=== PATIENT | female | born 1960 | race African-American/Black ===

== ENCOUNTER 2019-08-20 13:28 | Inpatient (IN) | payer OTHER ==
[~2019-08-20] VITALS: Ht 162.6 cm; Wt 71.7 kg
--- NOTE | ~2019-08-20 | EMS ---
[address] [address] EMS Patient Care Report Name: JENNIFFER COCHRAN Room #: PRE ER M.R.#: [id number] Admission: Attend Phys: Discharge: Date of : 62 Report #: [id number] THIS REPORT FOR: //name// Report Transmitted: 08/20/2019 13:12 EMS Care Summary [place], [place]/[facility] Incident [id number] @ 08/20/2019 12:51 Incident Location [address] [place], [place] [id number] Patient JENNIFFER COCHRAN Female, 58 Years 1960 Patient Address [address] [place] [id number] Patient History Hypertension (HTN), Chief Complaint SEIZURE, POSTICAL Disposition Transported No Lights/Ironside Dispatch Reason Stroke/CVA Transported To [facility] Narrative UPON ARRIVAL PT LATERAL ON THE GROUND NOT ALERT. 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 RESTORATIONISM SAW PT START LOOKING UP AND FALL TO THE SIDE OUT OF THE CHAIR, PT DID HAVE SOME ASSISTANCE TO THE GROUND. PT HAD SEIZURE LIKE ACTIVITY FOR ABOUT A MINUTE. PT HAS NO KNOWN SEIZURE HX. PT CARRIED TO COT. UPON REACHING AMBULANCE PT BECOMES UNCOOPERATIVE/ COMBATIVE AND STILL CONFUSED. PT TRANPORTED TO [facility]. MENTAL STATUS IMPROVES UPON ARRIVAL TO ER AND PT IS ABLE TO ANSWER A FEW QUESTIONS. PT BEGIN C/O PAIN TO THE R SHOULDER. [address] [address] EMS Patient Care Report Name: JENNIFFER COCHRAN Room #: PRE M.R.#: [id number] Admission: Attend Phys: Discharge: Date of : 62 Report #: [id number] Initial Vitals @13:13P: 142,BP: 179/108, @13:11P: 133, @13:15GCS: 12, @13:09P: 137,CO: 3,SpO2: 95, @13:16P: 136,CO: 5,SpO2: 94, @13:00P: 100,R: 24,BP: 114/72,Pain: 0/10,GCS: 9,Glucose: 194,SpO2: 94,Revised Trauma: 11, Assessments @13:00MENTAL:Combative,Confused,SKIN:HEENT:Head/Face: No Abnormalities,LUNG SOUNDS:General: No Abnormalities,ABDOMEN:General: No Abnormalities,PELVIS//GI:EXTREMITIES:Left Arm: No Abnormalities,Right Arm: No Abnormalities,Left Leg: No Abnormalities,Right Leg: No Abnormalities,PULSE:Radial: 2+ Normal,NEURO:Seizures, Impression Seizures without status epilepticus Procedures @13:00ALS AssessmentResponse: UnchangedSucceeded@13:05Saline Lock 20cc (18 ga) Site: Antecubital-LeftResponse: UnchangedSucceeded@13:063-Lead ECGResponse: UnchangedSucceeded Timeline 12:49,Call Received 12:49,Dispatch Notified 12:51,Dispatched 12:52,En Route 12:55,On Scene 12:57,At Patient 13:00,ALS Assessment,Response: UnchangedSucceeded, 13:00,BP: 114/72 M,PULSE: 100,RR: 24 R,SPO2: 94 Ox,ETCO2: ,B,PAIN: 0,GCS: 9, 13:05,Saline Lock 20cc 18 ga Site: Antecubital-Left,Response: UnchangedSucceeded, 13:06,3-Lead ECG,Response: UnchangedSucceeded, 13:09,BP: / M,PULSE: 137,RR: R,SPO2: 95 Ox,ETCO2: ,BG: ,PAIN: ,GCS: , 13:10,Depart Scene 13:11,BP: / M,PULSE: 133,RR: R,SPO2: Ox,ETCO2: ,BG: ,PAIN: ,GCS: , 13:13,BP: 179/108 M,PULSE: 142,RR: R,SPO2: Ox,ETCO2: ,BG: ,PAIN: ,GCS: , 13:15,BP: / M,PULSE: ,RR: R,SPO2: Ox,ETCO2: ,BG: ,PAIN: ,GCS: 12, 13:16,BP: / M,PULSE: 136,RR: R,SPO2: 94 Ox,ETCO2: ,BG: ,PAIN: ,GCS: , 13:24,At Destination 13:32,Call Closed [facility] [address] [facility] [place] [address] EMS Patient Care Report Name: COCHRANSIMONI Room #: [facility] MLuiRLui#: [id number] Admission: Attend Phys: Discharge: Date of : 62 Report #: [id number] Disclaimer v1.1 Copyright 2020 [employer] This EMS Care Summary contains data elements from the applicable legal record (which may be displayed differently). It is designed to provide pertinent information for the following purposes: continuity of care, clinical quality, and state data reporting. The complete legal record is available to ED staff and administrators of the receiving hospital in [employer]'s Patient Tracker. All data is provided "as is."
--- NOTE | ~2019-08-20 | EEG ---
[facility] [place] [address] ELECTROENCEPHALOGRAM Name: JENNIFFER COCHRAN Room #: 206-P [facility] IN M.R.#: [id number] Admission: 08/20/19 Attend Phys: El Ricketts MD Discharge: Date of : 62 Report #: [id number] THIS REPORT FOR: //name// [facility] DATE OF SERVICE: 08/21/2019 This patient is being evaluated for seizure. EEG was done by placing the electrode by standard 10-20 system of electrode placement. Both referential and sequential montages were used for recording. Background activity in this patient's EEG is about 10 Hz and 30 microvolt. This patient's EEG appeared to have a lot of eye movement artifact. Because of that, eye monitors were put in and that does appear to correlate with what looks like they were artifact. The patient became drowsy and that is also associated with bilateral slowing and vertex sharp waves. No spike and slow wave activity was noticed during this examination. IMPRESSION: This patient's EEG does not demonstrate any spike and slow wave activity, which is a definite sign for seizure. It would appear that the patient's EEG demonstrates paroxysmal delta range slowing, but eye monitors were put in and it looks like those were eye movements rather than epileptiform activity. However, clinical correlation is recommended. It also might be mentioned that EEG can be normal in a patient with seizure disorder in a significant percentage of patient and therefore either clinical decision need to be made in this patient's regarding anticonvulsants or alternate testing like prolonged monitoring needs to be done. Thank you very much for this referral. By: 1424 1443 Rah Landeros MD /nt
[2019-08-20 13:30] VITALS: BP 148/91
[2019-08-20 14:09] LABS: CALCIUM 8.5 mg/dL (8.5-10.1); CREATININE 0.9 mg/dL (0.6-1.0); POTASSIUM 3.3 mmol/L (3.5-5.1)
[2019-08-20 14:16] LABS: ALBUMIN 3.6 g/dL (3.4-5.0); TOTAL BILIRUBIN 1.1 mg/dL (<0.1-1.0); TOTAL PROTEIN 7.1 g/dL (6.4-8.2)
[2019-08-20 14:17] LABS: ABSOLUTE NEUTROPHILS 4.5 thou/uL (1.4-8.2); BASOPHILS 0.5 % (0.0-2.0); EOSINOPHILS 0.1 % (0.0-3.0); HEMATOCRIT 35.6 % (37.0-47.0); LYMPHOCYTES 22.8 % (24.0-44.0); MCH 30.8 pg (26.0-34.0); MCHC 33.6 g/dL (28.0-37.0); MCV 91.8 fL (80.0-100.0); POLYS 73.6 % (36.0-66.0); RBC 3.88 mil/uL (4.20-5.00); RDW 12.9 % (10.5-14.5); WBC 6.1 thou/uL (4.0-11.0)
[2019-08-20 14:51] LABS: PLATELET COUNT 294 thou/uL (150-400)
[2019-08-20 16:25] VITALS: BP 162/109
[2019-08-20 16:35] VITALS: BP 162/109
[2019-08-20 17:06] VITALS: BP 153/86
[2019-08-20 17:06] LABS: AMP/METHAMP Negative (Negative); BARBITURATES Negative (Negative); BENZODIAZEPINES Negative (Negative); COCAINE Negative (Negative); METHADONE Negative (Negative); OPIATES POSITIVE (Negative); PCP Negative (Negative)
[2019-08-20 17:52] VITALS: BP 167/91
--- NOTE | 2019-08-20 18:39 | NUR ---
ASSUMMED PT CARE AT APPROXIMATELY 1555. PT A&O X4 AND DROWSY. ASSESSMENT CHARTED. FALL PRECAUTIONS IN PLACE. PT DENIES HAVING CHEST PAIN. PT DENIES HAVING SOB. PT STATED HE R ARM HAD PAIN. PT RECEIVED ANALGEISCS. IN ED PRIOR TO TRANSFERING. PT STATED HER PAIN HAD RELELIEVED. PT COMFORTABLE ADMISSION COMPLETE. VITAL SIGNS STABLE. PT DENIES HAVING FURTHER CONCERNS.
[2019-08-20 20:47] VITALS: BP 150/119
[2019-08-21 00:45] VITALS: BP 154/77
[2019-08-21 05:26] VITALS: BP 156/79
[2019-08-21 05:59] LABS: HEMATOCRIT 31.4 % (37.0-47.0); HEMOGLOBIN 10.7 gm/dL (12.0-15.0); MCHC 34.3 g/dL (28.0-37.0); MCV 90.5 fL (80.0-100.0); RBC 3.47 mil/uL (4.20-5.00); RDW 12.5 % (10.5-14.5); WBC 9.6 thou/uL (4.0-11.0)
[2019-08-21 06:22] LABS: CALCIUM 8.6 mg/dL (8.5-10.1); CREATININE 0.7 mg/dL (0.6-1.0); POTASSIUM 3.5 mmol/L (3.5-5.1)
--- NOTE | 2019-08-21 08:37 | EKG ---
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
[2019-08-21 09:00] VITALS: BP 153/94
[2019-08-21 12:40] VITALS: BP 130/72
--- NOTE | 2019-08-21 13:10 | NUR ---
PER ORTHO CONSULT, PATIENT LIKELY TO HAVE SURGERY WEDNESDAY. WILL AWAIT NEW ORDERS.
[2019-08-21 16:30] VITALS: BP 153/86
--- NOTE | 2019-08-21 17:24 | NUR ---
ASSUMMED PT CARE AT APPROXIMATELY 0700. PT A&O X4. ASSESSMENT CHARTED. FALL PRECAUTIONS IN PLACE. PT DENIES HAVING CHEST PAIN. PT DENIES HAVING SOB. PT STATED SHE HAD ACUTE PAIN IN R ARM. PT RECEIVED ANALGESICS. PT STATED ANALGESICS HELPED RELIEVE PAIN. EDUCATED PT ABOUT POC. PT STATED UNDERSTANDING AND DENIED HAVING FURTHER CONCERNS. PER ORTHO, PT WILL HAVE SURGERY ON WEDNESDAY FOR R ARM. PT BECAME ANXIOUS DURING MRI. COULD NOT COMPLETE MRI DUE TO RADIOLOGY CLOSING. NO SEIZURES. SLING IN PLACE FOR R ARM. PT COMFORTABLE IN BED. PT DENIES HAVING FURTHER CONCERNS. VITAL SIGNS STABLE.
[2019-08-21 19:40] VITALS: BP 136/88
--- NOTE | 2019-08-22 01:12 | NUR ---
A/O X 4.PAIN WELL CONTROLLED.NO SEIZURES NOTED AT THIS TIME.POSSIBLE MRI TODAY.ALSO WAITING FOR POSSIBLE SURGERY THIS WEEK.MONITOR SHOWS SR.POC CONTINUED.
[2019-08-22 05:03] VITALS: BP 134/74
[2019-08-22 06:06] LABS: HEMATOCRIT 28.6 % (37.0-47.0); HEMOGLOBIN 9.7 gm/dL (12.0-15.0); MCH 31.2 pg (26.0-34.0); MCHC 33.9 g/dL (28.0-37.0); RBC 3.1 mil/uL (4.20-5.00); RDW 12.6 % (10.5-14.5); WBC 8.4 thou/uL (4.0-11.0)
[2019-08-22 06:27] LABS: CALCIUM 7.9 mg/dL (8.5-10.1); CREATININE 0.9 mg/dL (0.6-1.0); POTASSIUM 3.8 mmol/L (3.5-5.1)
[2019-08-22 07:20] VITALS: BP 141/91
--- NOTE | 2019-08-22 09:35 | HC ---
[facility] [place] [address] CONSULTATION Name: JENNIFFER COCHRAN Room #: 206- ADM IN M.R.#: [id number] Admission: 08/20/19 Attend Phys: El Ricketts MD Discharge: Date of : 62 Report #: [id number] THIS REPORT FOR: cc: Adrianna Zabala MD,Pardeep Santiago MD, MD ~ CC: El Zabala DATE OF SERVICE: 08/21/2019 REASON FOR CONSULTATION: Right proximal humerus fracture. 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 She does not recall the incident at all. She was brought to the Emergency Room and found to have a right proximal humerus fracture and was admitted for workup for her seizure activity as well as treatment of her humerus. She denies any previous seizure and denies previous injury to her shoulder. PAST MEDICAL HISTORY: Hypertension. CURRENT MEDICATIONS: Have been reviewed and are on the chart. ALLERGIES: No known drug allergies. PHYSICAL EXAMINATION: GENERAL: This is a well-developed, well-nourished female in no acute distress. She is alert and oriented, pleasant, cooperative with exam. EXTREMITIES: Examination of her right upper extremity shows to be in a sling. She is globally tender to palpation around the proximal femur. NEUROLOGIC: She is neurologically intact in her hand and fingers, has 2+ radial pulse. IMAGING: X-ray examination and CT scan of the right shoulder showed her to have a comminuted humeral head fracture with subluxation of part to the humeral head posterior to the glenoid. ASSESSMENT: Right proximal humerus fracture. PLAN: Discussed this case with my partner, Dr. Muñoz. He is recommending a humeral head replacement versus a total shoulder arthroplasty. We will tentatively plan to do this on Wednesday morning to give time for workup of procedure rule out other medical issue that may need to be addressed prior to surgical intervention. For the time being, she can be in her [place] [address] CONSULTATION Name: JENNIFFER COCHRAN Room #: 206-P [facility] IN .R.#: [id number] Admission: 08/20/19 Attend Phys: El Ricketts MD Discharge: Date of : 62 Report #: [id number] and pain medication as needed. Thank you for allowing us to participate in the care of the patient. <ELECTRONICALLY SIGNED> By: Pardeep Fonseca MD 08/22/19 0935 0903 1216 Pardeep Fonseca MD /nt
--- NOTE | 2019-08-22 12:53 | NUR ---
AAOX4. CALM, COOPERATIVE. MRI TODAY; UNABLE YESTERDAY D/T CLAUSTRAPHOBIA. ORDER FOR ATIVAN OBTAINED FROM DR. HICKEY AND SHE WAS ABLE TO TOLERATE TEST. SR PER TELE. SEIZURE, FALL PRECAUTIONS IN PLACE. WILL CONTINUE TO FOLLOW CLOSELY.
[2019-08-22 16:10] VITALS: BP 151/96
--- NOTE | 2019-08-22 16:33 | NUR ---
TRANSFERRING TO 4S. REPORT TO DANDRE NAVARRO. SISTER CALLED TO INFORM OF SAME.
--- NOTE | 2019-08-22 18:15 | NUR ---
PT ARRIVED TO THE FLOOR AT THIS TIME. PT IS ALERT AND ORIENTED. STATING SHE IS HAVING SOME PAIN, BUT OTHERWISE DOING OK. RIGHT ARM IS IN A SLING. WILL GIVE PRN PAIN MEDS ORDERED. INSTRUCTED PT TO CALL IF SHE NEEDED ANYTHING OR TO GET UP OOB. CALL LIGHT IN REACH. DISCUSSED WITH PT POC AND SHE STATED THERE WERE NO QUESTIONS FOR ME AT THIS TIME. WILL CONTINUE TO MONITOR
[2019-08-22 20:20] VITALS: BP 157/82
[2019-08-23] VITALS (11 sets, daily range): BP systolic 124–172; BP diastolic 80–102
--- NOTE | 2019-08-23 00:24 | NUR ---
ASSUMED PT CARE AT 1900. PT REPORTS PAIN 7/10, PO AND IV PAINS MEDS GIVEN. NPO AT MIDNIGHT. COVID SWAB SENT TO LAB. HAS QUESTIONS ABOUT SURGERY THAT THIS NURSE ASSURED HER WOULD BE ANSWERED TOMORROW. VSS. CURRENTLY RESTING IN BED WITH EYES CLOSED.
--- NOTE | 2019-08-23 13:04 | NUR ---
PT PLACED ON HOLD FROM P.T. DUE TO PLAN FOR R SHOULDER SURGICAL INTERVENTION. REQUEST NEW POST-OP P.T. ORDERS ADDRESSING ANY MOVEMENT RESTRICTIONS
--- NOTE | 2019-08-23 14:21 | NUR ---
PT ADMITTED RELATED TO SEIZURE LIKE ACTIVITY; R HUMERAL HEAD FX W/SUBLUXATION. CM REVIEWED CHART AND SPOKE WITH CARE TEAM. CM CALLED AND SPOKE WITH PT THIS DAY. PT APPEARED TO BE A&O X4. CM ROLE INTRODUCED. PT INDICATED SHE LIVES ALONE IN A HOUSE WITH 10 STEPS THROUGH THE GARAGE TO THE MAIN LIVING AREA. 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 PT INDICATED NO HH OR OP THERAPY HX AND NO DME. PT INDICATED SHE PLANS TO RETURN HOME ONCE MEDICALLY STABLE. PT HAS INSRUANCE AND HER CLINICAL RECORDS WERE UPDATED TO INDICATE THAT. PT TO HAVE SURGERY ON SHOULDER THIS DAY. CM TO FOLLOW INDICATED WITH DC PLANNING.
--- NOTE | 2019-08-23 18:54 | NUR ---
Assumed care of pt at 0700. Pt a&ox4. Pt had surgery on right shoulder today. Right shoulder immobilizer in place. Denies pain. Polar pack in place. Fall precautions in place.
--- NOTE | 2019-08-24 02:00 | NUR ---
ASSESSMENT COMPLETED. PT AWAKE IN THE SHIFT.SHE ASKED FOR SOMETHING TO EAT, ATE A TURKEY SANDWICH, NO NAUSEA NOTED. WITH SBA SHE HAS BEEN ABLE TO USE THE BSC-VOIDING ADEQUATELY. SHE SEEMS TO HAVE ALOT OF PAIN TO RIGHT SHOULDER, POLAR EDY IN PLACE, BOTH MORPHINE AND NORCO WAS GIVEN AND AFTER A WHILE, IT SEEMS TO HAVE HELPED. VSS. SLING IN PLACE TO R SHOULDER. WILL CONTINUE WITH POC TILL EOS.
[2019-08-24 04:10] VITALS: BP 140/94
[2019-08-24 05:39] LABS: HEMATOCRIT 28.5 % (37.0-47.0); HEMOGLOBIN 9.6 gm/dL (12.0-15.0); MCH 30.9 pg (26.0-34.0); MCHC 33.7 g/dL (28.0-37.0); MCV 91.5 fL (80.0-100.0); RBC 3.12 mil/uL (4.20-5.00); RDW 12.5 % (10.5-14.5); WBC 8.1 thou/uL (4.0-11.0)
[2019-08-24 05:45] LABS: CALCIUM 8.2 mg/dL (8.5-10.1); CREATININE 0.7 mg/dL (0.6-1.0); POTASSIUM 4.3 mmol/L (3.5-5.1)
[2019-08-24 08:35] VITALS: BP 146/91
--- NOTE | 2019-08-24 13:12 | O ---
[facility] [place] [address] OPERATIVE REPORT Name: JENNIFFER COCHRAN Room #: 441-[facility] IN M.R.#: [id number] Admission: 08/20/19 Attend Phys: El Ricketts MD Discharge: Date of : 62 Report #: [id number] THIS REPORT FOR: cc: Adrianna Zabala MD,Manjit Starr MD, MD ~ CC: El Zabala DATE OF SERVICE: 08/23/2019 PREOPERATIVE DIAGNOSIS: Right shoulder proximal humerus fracture dislocation, 4-part. POSTOPERATIVE DIAGNOSES: Right shoulder proximal humerus fracture dislocation, 4-part; biceps tendinopathy. PROCEDURE PERFORMED: Right shoulder humeral head replacement for fracture with open biceps tenodesis. SURGEON: Manjit Steen MD ANESTHESIA: General with preoperative ultrasound-guided interscalene block. FLUIDS: 1100 mL crystalloid. ESTIMATED BLOOD LOSS: 50 mL. IMPLANTS UTILIZED: DePuy Global Unite size 10 stem with a size 10, -5 epiphyseal body and a 44 collar with a 44 x 15 mm standard humeral head. DESCRIPTION OF PROCEDURE: After proper identification of the patient and operative site in preoperative holding area, the operative site was signed by myself. The patient was initially been seen and evaluated by my partner, Dr. Pardeep Fonseca. We reviewed the patient's injury. We discussed potential treatment options including open reduction and internal fixation, humeral head replacement versus total shoulder arthroplasty and possible reverse shoulder arthroplasty. We discussed the risks, benefits, alternatives and potential complications of her injury and treatment. We discussed the potential for postoperative stiffness of the shoulder and/or weakness, especially in a more overhead and reaching type manner. The patient wished to proceed with operative intervention, had been cleared from medical standpoint and Anesthesia performed an ultrasound-guided block. She was brought back to the operative suite after induction of satisfactory general anesthesia. She was carefully positioned in the beach chair with head of bed elevated approximately 40 degrees. The head and neck were carefully positioned. The right shoulder was sterilely prepped [address] [address] OPERATIVE REPORT Name: JENNIFFER COCHRAN Room #: 441-P [facility] IN M.R.#: [id number] Admission: 08/20/19 Attend Phys: El Ricketts MD Discharge: Date of : 62 Report #: [id number] and draped in the usual manner and placed in a [email or web address] spider limb positioning system. Final skin draping was with Ioban. A deltopectoral approach was planned. Skin was incised sharply. Full thickness skin flaps were developed. Deltopectoral interval was established and the cephalic vein was retracted laterally. Subdeltoid fracture hematoma was carefully evacuated. The patient had a fracture involving the greater tuberosity with a majority of the rotator cuff attached as well as a separate lesser tuberosity fragment and then the head fragment was displaced posteriorly and locked along the posterior aspect of the glenoid as a separate fragment and therefore I would classify this as a 4-part fracture. There was partial thickness tearing of the biceps tendon in the region of what was the bicipital groove and a biceps tenodesis was performed to the undersurface of the pectoralis major using #2 FiberWire. The lesser tuberosity and subscapularis were then tagged with a #2 FiberWire. The fragmented lesser tuberosity was then contoured with a rongeur and 2 tag stitches were placed through the bone tendon junction of the greater tuberosity and again this was contoured with a rongeur. As previously noted, the humeral head was locked posteriorly. It was carefully removed. The axillary nerve was identified and protected throughout the entire procedure. Humeral head demonstrated degenerative changes on it and there were mild degenerative changes on the glenoid, but it was relatively well preserved and based on this a humeral head replacement only was performed. The stem was then carefully prepared up to a size 10 stem and a trial implant was inserted. It appeared that approximately 15 degrees of retroversion matched her [place] version and a -5 epiphyseal assembly provided the best overall fit with a 44 x 15 mm head. The shoulder was reduced and with the cuff reduced and the remnants of the greater tuberosity, this appeared to be anatomically positioned. At this point, the wound was thoroughly irrigated with antibiotic irrigant and the Global Unite stem was assembled on the back table and carefully impacted into position. It was a porous coated stem and had good rotational stability once it was fully implanted. Two drill holes had been placed in the humeral cortex with #2 FiberWire passed and then an [id number] stitch had been placed through the inferior aspect of the stem in it suture hole and then a combination of holes were utilized within the collar were used for the greater tuberosity and subscapularis repair. Bone graft was obtained from the head and the collar and head were carefully impacted into position and multiple times throughout the procedure. Intraoperative fluoroscopy was utilized to verify satisfactory position of the implant and shoulder reduction. Multiple sutures were utilized for fixation of the greater tuberosity to the shaft and the greater tuberosity to the implant as well as the lesser tuberosity in a similar manner and then 2 different pshhus-rts-nqayi stitches were utilized. These were tied sequentially and a nice reduction of the tuberosities relative to the implants and shaft were noted. These were rotationally stable and there was no evidence of bony prominence or impingement surrounding these. The shoulder was reduced nicely. She could be externally rotated approximately 30 degrees with the arm at the side. At this point, antibiotic irrigant was again utilized. Final implant images were taken in multiple degrees of rotation. There is overall [facility] [address] [place] [address] OPERATIVE REPORT Name: JENNIFFER COCHRAN Room #: 441-P [facility] IN M.R.#: [id number] Admission: 08/20/19 Attend Phys: El Ricketts MD Discharge: Date of : 62 Report #: [id number] satisfactory reduction as well as implant and tuberosity placement. One gram vancomycin powder was utilized, half at deep, half at more superficial. Deltopectoral interval was closed with 0 Vicryl, 2-0 Vicryl subcutaneous tissues, final skin closure with running Monocryl, sealed with Dermabond. Sterile dressing and sling were applied as well as a padded PolarCare unit. At the time of dictation, she was in the recovery room in stable condition. <ELECTRONICALLY SIGNED> By: Manjit Steen MD 08/24/19 1312 1521 1544 Manjit Steen MD /nt
[2019-08-24 15:05] VITALS: BP 131/80
--- NOTE | 2019-08-24 15:15 | NUR ---
ASSUMED PATIENT CARE AT 0700. PAIN RIGHT SHOULDER, ASKED FOR PAIN MEDICINE, RATED PAIN OF 10, HYDROCODONE AND MORPHINE GIVEN. RESPONDED TO PAIN MEDICINE, PAIN LEVEL DECREASED TO ABOUT 3. SHOULDER IMMOBILIZER IN PLACE, INCISSION INTACT. ON REGULAR DIET, NO EDEMA, ON SEIZURE PRECAUTION.USING BEDSIDE COMMODE WITH ONE PERSON ASSIST. PATIENT HAS URGENCY WITH URINATION. HOSPITAL DOCTOR SAID, PATIENT WILL NOT BE DISCHARGED TODAY.
[2019-08-24 19:02] VITALS: BP 126/83
--- NOTE | 2019-08-25 02:24 | NUR ---
ASSESSMENT COMPLETED. PAIN MANAGED WITH HYDROCODONE. DENIES NAUSEA OR VOMITING. SOME SWELLING NOTED TO R HAND. PATIENT HAS BRACE AND POLAR EDY TO R SHOULDER. SHE TENDS TO LOOSEN THE BRACE STRAPS FOR COMFORT. GETS UP TO THE BSC WITH SBA. CALL WITH NEEDS. PROGRESSING TOWARS CARE GOALS.
[2019-08-25 07:50] VITALS: BP 120/73
[2019-08-25] MEDS ORDERED: HYDROCODON-ACE1 EAC7 PO (11:29)
[2019-08-25] MEDS ORDERED: NORVASC10 MG PO (11:29)
[2019-08-25] MEDS ORDERED: KEPPRA XR500 MG PO (11:31)
[2019-08-25 13:00] VITALS: BP 120/73
--- NOTE | 2019-08-25 14:33 | NUR ---
ASSUMED CARE OF THE PT AT 0700. PT IS STANDBY ASSIST WITH GAIT BELT TO TOILET. PT ALITTLE CONFUSED AND DROWSY, A&OX4 BUT SOME TIMES CONFUSED ABOUT DIRECTIONS GIVEN OR FOLLOWUP CARE. PT REMOVED SHOULDER BRACE, REINFORCED THE IMPORTANCE OF WEARING THE SLING ALONG WITH PT, PT AGREED. PT REFUSED SCD'S. PT CAN TURN SELF. PT D/C'D TO HOME WITH SCRIPTS, POLAR PACK AND ALL BELONGINGS. L HAND IV REMOVED. PULSES ARE STRONG, CAP REFILL LESS THAN 3 SECONDS, LUNGS ARE CLEAR. PT D/C'D, PPWK SIGNED.
--- NOTE | 2019-08-25 15:10 | NUR ---
ON-GOING ASSESSMENT: CM REVIEWED CHART AND SPOKE WITH PATIENT. PT REPORTS SHE IS DOING WELL AND PLAN IS TO DISCHARGE HOME TODAY. CM DISCUSSED HH AND PT REPORTED SHE DID NOT FEEL THE NEED FOR IT AND SHE CAN DO HER OWN EXERCISES AT HOME. CM NOTIFIED ATTENDING. CM LATER THEN SPOKE WITH BEDSIDE RN WHO STATED PT WAS AGREEABLE TO HH. CM SPOKE WITH PT WHO STATES SHE IS AGREEABLE IF IT IS COVERED. PT HAS [employer] AND CM NOT FAMILIAR WITH THIS PLAN. CM CONTACTED [employer] [phone] WHO REPORTS THAT THIS IS NOT AN INSURANCE THIS IS A ORIENTAL [employer] [facility] [employer] AND IF PATIENT MEETS HER PAULINO OF 5000 THEN THEY HELP ASSIST WITH MEDICAL BILLS. SHE HAS TO PAY THAT 5000 OUT OF POCKET BEFORE THEY START SHARING INTO MEDICAL BILLS. PT IS ELIGIBLE FOR HH 30 DAYS AFTER DISCHARGE FROM INPATIENT STAY AND AFTER 5000 IS MET SHE CAN RECEIVE 10 SERVICES OF EITHER PT/OT/NURSING/ST. THEY STATE THAT [facility] IS IN NETWORK WITH THEM. CM CONTACTED [facility] AND FAXED REFERRAL AND WAITING TO HEAR BACK. CM DISCUSSED WITH PATIENT.
[2019-08-25 15:29] VITALS: BP 120/73
== END 2019-08-25 14:30 | disposition home health service (06) | DRG 493 ==
LOC: ER 13:28 → EROBS 15:09 → 2N 15:09 → 4S 15:09 → 2N 17:11 → 4S 08-22 17:58
PROVIDERS: Emergency Medicine Emergency Medical Services; ADMIT Hospitalist
PROC: 0RHJ04Z Insertion of Internal Fixation Device into Right Shoulder Joint, Open Approach (ICD-10-PCS; principal; 2019-08-23)
PROC: 0LS30ZZ Reposition Right Upper Arm Tendon, Open Approach (ICD-10-PCS; principal; 2019-08-23)
PROC: 0PUC07Z Supplement Right Humeral Head with Autologous Tissue Substitute, Open Approach (ICD-10-PCS; principal; 2019-08-23)
DX: S42.351A Displaced comminuted fracture of shaft of humerus, right arm, initial encounter for closed fracture (principal); G93.40 Encephalopathy, unspecified; X58.XXXA Exposure to other specified factors, initial encounter; S42.291A Other displaced fracture of upper end of right humerus, initial encounter for closed fracture; Y93.89 Activity, other specified; R56.9 Unspecified convulsions; I10 Essential (primary) hypertension; Y92.89 Other specified places as the place of occurrence of the external cause; Y99.8 Other external cause status; Z03.818 Encounter for observation for suspected exposure to other biological agents ruled out
CPT/HCPCS: 10081; 10102; 50010; 50101; 50172; 50386; 50417; 50697; 50733; 50935; 51320; 52001; 52138; 52256; 53000; 53078; 54118; 56524; 56525; 56526; 56530; 57095; 57103; 57942; 57943; 57944; 57945; 62110; 62900; 64039; 70005